=== PATIENT | female | born 1975 | race Two or more races ===

== ENCOUNTER 2021-07-18 14:06 | Emergency (ER) | payer MEDICARE, MEDICAID ==
[~2021-07-18] VITALS: Ht 157.5 cm; Wt 81.6 kg
[2021-07-18] MEDS ORDERED: ALUM & MAG HYDROX-SIMETH LIQ(MAALOX) 30 ML PO ONE (15:45)
[2021-07-18] MEDS ORDERED: OLANZapine 5 MG TAB PO ONE (16:15)
[2021-07-18 16:50] LABS: Basophils # (auto) 0.1 10 ^3/uL (0-0.2); Basophils % (auto) 0.6 % (0.0-2.0); Eosinophils # (auto) 0 10 ^3/uL (0-0.8); Eosinophils % (auto) 0.4 % (0.0-7.0); Hematocrit 41.4 % (36.0-46.0); Hemoglobin 14.5 g/dL (12.2-16.2); Lymphocytes # (auto) 1.2 10 ^3/uL (0.4-5.4); Lymphocytes % (auto) 13.7 % (10.0-50.0); Mean Corpuscular Hemoglobin 30.9 pg (28.0-32.0); Mean Corpuscular Volume 88.4 fL (80.0-100.0); Monocytes # (auto) 0.6 10 ^3/uL (0-1.3); Monocytes % (auto) 6.7 % (0.0-12.0); Neutrophils # (auto) 6.9 10 ^3/uL (1.6-8.6); Neutrophils % (auto) 78.6 % (37.0-80.0); Red Blood Cells 4.68 10^6/uL (4.0-5.20); Red Cell Distribution Width 13.1 % (11.8-14.3); White Blood Cell 8.8 10^3/uL (4.4-10.8)
[2021-07-18 17:10] LABS: Anion Gap 7 (5-15); Carbon Dioxide 24 mmol/L (21-32); Chloride 105 mmol/L (98-107); Potassium 3.3 mmol/L (3.5-5.1); Sodium 136 mmol/L (136-145)
[2021-07-18 17:16] LABS: Alanine Aminotransferase 26 U/L (13-56); Alkaline Phosphatase 84 U/L (45-117); Aspartate Aminotransferase 26 U/L (15-37); BUN/Creatinine Ratio 16.7; Bilirubin, Total 2.3 mg/dL (0.2-1.0); Blood Alcohol < 3.0 mg/dL (0-5); Blood Urea Nitrogen 8 mg/dL (7-18); GFR African American 180 mL/min; GFR Non-African American 149 mL/min; Glucose 107 mg/dL (74-106); Total Protein 7.8 g/dL (6.4-8.2)
[2021-07-22] MEDS ORDERED: LORazepam 2MG/ML-1ML VIAL IM ONE (15:15)
[2021-07-22] MEDS ORDERED: diphenhdrAMINE HCL 50 MG/1 ML VL IM ONE (17:15)
[2021-07-23] MEDS ORDERED: LORazepam 0.5 MG TAB PO ONE (01:15)
[2021-07-23] MEDS ORDERED: LORazepam 0.5 MG TAB ONE (01:22)
[2021-07-23] MEDS ORDERED: OLANZapine 5 MG TAB PO PRN (19:45)
[2021-07-24] MEDS ORDERED: LORazepam 0.5 MG TAB PO PRN (03:00)
[2021-07-24] MEDS ORDERED: LORazepam 0.5 MG TAB ONE (03:05)
[2021-07-24] MEDS ORDERED: OLANZapine 5 MG TAB ONE (03:05)
[2021-07-24 08:39] VITALS: BP 110/68
== END 2021-07-24 09:45 | disposition short-term general hospital (02) ==
LOC: ER 14:06 → EDBD 14:06 → ER 07-24 09:45
DX: R45.851 Suicidal ideations (principal); R94.31 Abnormal electrocardiogram [ECG] [EKG]; F29 Unspecified psychosis not due to a substance or known physiological condition; R41.82 Altered mental status, unspecified
CPT/HCPCS: 36415; 80053; 80320; 83690; 84702; 85025; 93005